=== PATIENT | male | born 1955 | race Caucasian/White ===

== ENCOUNTER 2017-12-15 11:10 | Emergency (ER) | payer MEDICAID ==
[~2017-12-15] VITALS: Ht 170.2 cm; Wt 83.0 kg
[2017-12-15 11:15] VITALS: BP 137/65
== END 2017-12-15 19:18 | disposition left against medical advice (07) ==
LOC: ER 12:32
DX: R50.9 Fever, unspecified (principal); R51 Headache; Z53.21 Procedure and treatment not carried out due to patient leaving prior to being seen by health care provider